=== PATIENT | female | born 1980 | race African-American/Black ===

== ENCOUNTER 2023-05-21 17:12 | Emergency (ER) | payer MEDICARE, OTHER ==
[~2023-05-21] VITALS: Ht 172.7 cm; Wt 97.0 kg
[~2023-05-21 17:12] MED LIST: PROM25TA13
[2023-05-21 17:22] VITALS: BP 150/91; PULSE 107; RESP 16; TEMP 98.9; O2SAT 97
[2023-05-21] MEDS ORDERED: LIDOCAINE HCL 1% 20ML VIAL (Pyxis) INJ INFIL ONE (19:15)
[2023-05-21] MEDS ORDERED: LIDOCAINE HCL 1% 20ML VIAL (Pyxis) INJ INFIL NR (22:30)
[2023-05-21] MEDS ORDERED: SULF1TAB48 MT (23:20)
== END 2023-05-21 23:34 | disposition home or self-care (01) ==
LOC: ER 17:12
DX: S80.851A Superficial foreign body, right lower leg, initial encounter (principal); G89.11 Acute pain due to trauma; X58.XXXA Exposure to other specified factors, initial encounter; Y93.89 Activity, other specified; Y92.89 Other specified places as the place of occurrence of the external cause; Y99.8 Other external cause status
CPT/HCPCS: 73564; 73590; 10060; 99284; J3490; Z7610 ×3